=== PATIENT | female | born 1995 | race African-American/Black ===

== ENCOUNTER 2016-05-04 07:50 | Observation (INO) | payer OTHER ==
[~2016-05-04] VITALS: Ht 162.6 cm; Wt 67.1 kg
[2016-05-04 07:50] VITALS: BP 129/61
[2016-05-04] MEDS ORDERED: PREN1TAB58 PO (07:55)
[2016-05-04] MEDS ORDERED: ACET325T9 PO (08:25)
--- NOTE | 2016-05-04 08:25 | PHYS DOC ---
Past Medical History Past Medical History: No Pertinent History Past Surgical History: Other Additional Past Surgical Histo: R ACL repair Alcohol Use: None Drug Use: None Adult General Chief Complaint Chief Complaint: ANKLE PROBLEM HPI HPI 20-year-old female presenting to the emergency department after twisting her ankle today. She has pain in her left ankle that is sharp nonradiating moderate and worse with walking. She slipped on the ice. She reports landing on her side. She is currently approximately between 30 and 32 weeks . She reports out the . Her operations lead is at [facility]. She reports feeling movement and denies vaginal bleeding or abdominal pain. Review of Systems Review of Systems Negative for chest pain shortness of breath abdominal pain nausea vomiting. She reports pain in her ankle. All other review of systems is negative unless otherwise noted in history of present illness. Current Medications Current Medications Current Medications Medications (Trade) Dose Ordered Sig/Madai Start Time Stop Time Status Last Admin Dose Admin Acetaminophen (Tylenol) 650 mg 1X ONCE 05/04/16 08:30 05/04/16 08:31 05/04/16 08:25 650 MG Allergies Allergies Allergies Coded Allergies Type Severity Reaction Last Updated Verified No Known Drug Allergies 05/04/16 No Physical Exam Physical Exam Constitutional: Well developed, well nourished, no acute distress, non-toxic appearance. [] HENT: Normocephalic, atraumatic, bilateral external ears normal, oropharynx moist, no oral exudates, nose normal. [] Eyes: PERRLA, EOMI, conjunctiva normal, no discharge. [] Neck: Normal range of motion, no tenderness, supple, no stridor. [] Cardiovascular:Heart rate regular rhythm, no murmur Lungs & Thorax: Bilateral breath sounds clear to auscultation [] Abdomen: Soft gravid abdomen that is nontender to palpation. Fundus height approximately 5 cm to 6 cm below the xiphoid process. Skin: Warm, dry, no erythema, no rash. Back: No tenderness, no CVA tenderness. [] Extremities: The patient's left lower extremity is warm and well perfused with a palpable pulse. Normal motor and sensation of the foot. Tenderness is on the anterior portion of the ankle. No tenderness of the foot. Nontender on the lateral or medial malleolus. No ecchymosis laceration or abrasion present. Skin intact. Other extremities are nontender and without evidence of abnormality or injury. Neurologic: Alert and oriented X 3, normal motor function, normal sensory function, no focal deficits noted. Psychologic: Affect normal, judgement normal, mood normal. [] Current Patient Data Vital Signs Vital Signs Date Time Temp Pulse Resp B/P Pulse Ox O2 Delivery O2 Flow Rate FiO2 05/04/16 07:50 98.2 85 18 99 Room Air 98.2 EKG EKG [] Radiology/Procedures Radiology/Procedures [] Course & Med Decision Making Course & Med Decision Making Pertinent Labs and Imaging studies reviewed. (See chart for details) [] Dragon Disclaimer Dragon Disclaimer This electronic medical record was generated, in whole or in part, using a voice recognition dictation system. Departure Departure Impression: Primary Impression: Ankle sprain Disposition: 01 HOME, SELF-CARE Condition: STABLE Referrals: SUHAS BROWN (PCP) Patient Instructions: Ankle Sprain Additional Instructions: Go directly to our OB unit for monitoring of the fetus for 4-6 hours. Thank you for allowing us to participate in your care today. Followup with your pcp if your symptoms do not improve. If you do not have a primary care provider you can ask for a list of our primary care providers. Return to the emergency department you have any new or concerning findings. This should be evaluated by the primary care physician and any necessary consulting services for continued management within a few days after discharge. Return to emergency room if you have any new or concerning symptoms including but not limited to fever, chills, nausea, vomiting, intractable pain, any new rashes, chest pain, shortness of air, uncontrolled bleeding, difficulty breathing, and/or vision loss. Scripts Acetaminophen (Tylenol)325 Mg [id number] Mg PO PRN Q8HRS PRN PAIN #20 Prov:BRADY BLACKBURN MD 05/04/16 BRADY BLACKBURN MD May 04, 2016 08:25
[2016-05-04] MEDS ORDERED: ACETAMINOPHEN 325 MG TABLET. PO ONE (08:30)
--- NOTE | 2016-05-04 08:34 | RAD ---
Left ankle radiographs History: Fall on the ice, pain to left ankle. Comparison: None. Findings: AP, lateral, and oblique views of the left ankle. No acute fracture or dislocation is identified. Impression: No acute osseous traumatic injury identified.
[2016-05-04] MEDS ORDERED: IV RINGERS,LACTATED 1000ML 1,000 ML IV SCH (12:00)
[2016-05-04 12:19] LABS: BILIRUBIN,URINE NEGATIVE (NEG); GLUCOSE,URINE NEGATIVE (NEG); NITRITE,URINE NEGATIVE (NEG); PROTEIN,URINE NEGATIVE (NEG-TRACE); UROBILINOGEN,URINE 0.2 mg/dL (0.2 mg/dL)
[2016-05-04 12:30] LABS: BACTERIA,URINE MANY /HPF (0-FEW); RBC,URINE OCC /HPF (0-2); SQUAMOUS EPITHELIAL CELL,UR MANY /LPF
--- NOTE | 2016-05-04 12:59 | RAD ---
Limited OB ultrasound History: Fell on ice, , left-sided pain. Comparison: None. Findings: There is a single intrauterine gestation in cephalic presentation. The placenta is posterior in location without evidence of placenta previa. There is no evidence of retroplacental hemorrhage. The amount of amniotic fluid appears appropriate. Amniotic fluid index is 12.0 cm. Cervical length is 3.66 cm. Biometric data is as follows: HC = 27.81 cm for 30 weeks 3 days. No other biometric parameters were obtained. Survey of anomalies was not performed. The estimated heart rate is 141 beats per minute. Impression: 1. Single live intrauterine gestation in cephalic presentation. 2. No evidence of retroplacental hemorrhage.
[2016-05-04] MEDS ORDERED: ACETAMINOPHEN/CODEINE 300/30MG TABLET PO ONE (14:15)
== END 2016-05-04 15:38 | disposition home or self-care (01) ==
LOC: ER 07:50 → 3 SO LND 08:37
PROVIDERS: ADMIT Obstetrics & Gynecology; ATTEND Obstetrics & Gynecology
DX: O9A.213 Injury, poisoning and certain other consequences of external causes complicating pregnancy, third trimester (principal); S93.402A Sprain of unspecified ligament of left ankle, initial encounter; Z3A.30 30 weeks gestation of pregnancy; W00.0XXA Fall on same level due to ice and snow, initial encounter; Y93.89 Activity, other specified; Y92.89 Other specified places as the place of occurrence of the external cause; Y99.8 Other external cause status
CPT/HCPCS: 73610; 76815; 81001; 87086; 99285; G0378; G0379